=== PATIENT | male | born 1980 | race Native Hawaiian/Other Pacific Islander ===

== ENCOUNTER 2018-03-23 11:16 | Day surgery (SDC) | payer OTHER ==
[~2018-03-23] VITALS: Ht 177.8 cm; Wt 88.5 kg
[~2018-03-23 11:16] MED LIST: CEFAZOLIN SOD 1 GM/ ISO 50 ML PREMIX IV ONE
[2018-03-23] MEDS ORDERED: D5/0.45 NS 1,000 ML IV SCH (14:29)
[2018-03-23] MEDS ORDERED: METOCLOPRAMIDE HCL 10 MG/2 ML VIAL IVP PRN (14:30)
[2018-03-23] MEDS ORDERED: MORPHINE 4 MG/ML INJ. SYRINGE IVP PRN ×3 (14:30)
[2018-03-23] MEDS ORDERED: fentaNYL CITRATE/PF 100 MCG/2 ML AMP ONE (14:40)
[2018-03-23] MEDS ORDERED: GLYCOPYRROLATE 0.2 MG/ML VIAL ONE (14:40)
[2018-03-23] MEDS ORDERED: LR 1,000 ML IV.SOLN IV ONE (14:40)
[2018-03-23] MEDS ORDERED: SEVOFLURANE 15 MIN GAS INH ONE (14:40)
[2018-03-23] MEDS ORDERED: NS IRRIG SOLN 1000 ML IR ONE (14:40)
[2018-03-23] MEDS ORDERED: ROCURONIUM BROMIDE 10 MG/ML (ZEMURON) ONE (14:40)
[2018-03-23] MEDS ORDERED: NEOSTIGMINE METHYLSULFATE 1 MG/ML, 10 ML VIAL ONE (14:40)
[2018-03-23] MEDS ORDERED: ONDANSETRON HCL 4 MG/2 ML VIAL ONE (14:40)
[2018-03-23] MEDS ORDERED: PROPOFOL 200MG/ 20ML VIAL (DIPRIVAN) IV ONE (14:40)
[2018-03-23] MEDS ORDERED: MIDAZOLAM HCL 5 MG/ML VIAL (VERSED) IV ONE (14:40)
[2018-03-23] MEDS ORDERED: HYDROmorphone 1 MG INJ. 1 MG/ML AMPUL IVP PRN (17:30)
[2018-03-23] MEDS ORDERED: HYDROcodone/ACETAMIN 5-325 MG TAB (NORCO/ VICODIN) PO PRN ×2 (17:30)
[2018-03-23 17:36] VITALS: BP_SYST 131
== END 2018-03-23 17:00 | disposition home or self-care (01) ==
LOC: SDS 11:16
PROVIDERS: ATTEND Colon & Rectal Surgery
DX: K61.3 Ischiorectal abscess (principal)
CPT/HCPCS: 46060; J0690; J2250; J2270; J2405; J2704; J2710; J3010; J3490; J7120